=== PATIENT | female | born 1945 | race Caucasian/White ===

== ENCOUNTER 2017-11-07 14:29 | Observation (INO) | payer OTHER ==
[~2017-11-07] VITALS: Ht 175.3 cm; Wt 84.0 kg
[~2017-11-07 14:29] MED LIST: AMLO1TAB; ASPI-614 PO; ATEN50TA41 PO; CHOL100011 PO; CLON0.1T; INSU100V8; LISI-167 PO; LOVA-39; MELA10CA PO; MULT1CAP19 PO; OMEP10CA4 PO; OXYB10TA6; SERT50TA5; SULCRAFATE
[2017-11-07 14:54] LABS: BASOPHILS # (AUTO) 0.02 x10^3/uL (0-0.1); BASOPHILS % (AUTO) 1 % (0-1); EOSINOPHILS % (AUTO) 3 % (1-7); LYMPHOCYTES # (AUTO) 1.51 x10^3/uL (1-3.4); LYMPHOCYTES % (AUTO) 40 % (22-44); MD NO; MEAN CORPUSCULAR HEMOGLOBIN 32.6 pg (27.0-34.8); MEAN CORPUSCULAR HGB CONC 34.3 g/dL (32.4-35.8); MEAN PLATELET VOLUME 9.4 fL (7.4-10.4); MONOCYTES # (AUTO) 0.37 x10^3/uL (0.2-0.8); MONOCYTES % (AUTO) 10 % (2-9); NEUTROPHILS # (AUTO) 1.77 x10^3/uL (1.8-6.8); NEUTROPHILS % (AUTO) 47 % (42-75); PLATELET COUNT 164 x10^3/uL (130-400); RED BLOOD COUNT 3.32 x10^6/uL (3.82-5.3); RED CELL DISTRIBUTION WIDTH 13.9 % (9.6-15.2)
[2017-11-07] MEDS ORDERED: ASPIRIN 81 MG TABLET CHEW ONE (14:57)
[2017-11-07] MEDS ORDERED: PLEASE ENTER HEIGHT AND WEIGHT MC SCH (15:00)
[2017-11-07] MEDS ORDERED: ASPIRIN 81 MG TABLET CHEW PO ONE (15:00)
[2017-11-07 15:07] LABS: ALANINE AMINOTRANSFERASE 23 U/L (12-78); ALBUMIN 3.4 g/dL (3.4-5.0); ANION GAP 10 mmol/L (5-15); CALCIUM 9.2 mg/dL (8.5-10.1); CHLORIDE 109 mmol/L (98-107); CREATININE 1.31 mg/dL (0.55-1.02)
[2017-11-07 15:11] LABS: ALKALINE PHOSPHATASE 95 U/L (45-117); BILIRUBIN,TOTAL 0.6 mg/dL (0.2-1.0); TROPONIN I < 0.015 ng/mL (0.000-0.045)
[2017-11-07] MEDS ORDERED: FUROSEMIDE 20 MG/2 ML IV ONE (15:30)
[2017-11-07] MEDS ORDERED: ATOR40TA78 PO (15:46)
[2017-11-07] MEDS ORDERED: MIRA50TA PO (15:46)
[2017-11-07] MEDS ORDERED: LIOT5TAB3 PO (15:46)
[2017-11-07] MEDS ORDERED: AMLO5TAB7 PO (15:46)
[2017-11-07] MEDS ORDERED: ALEN70TA5 PO (15:46)
[2017-11-07] MEDS ORDERED: INSU300I INJ (15:46)
[2017-11-07] MEDS ORDERED: CEPH-375 PO (15:46)
[2017-11-07] MEDS ORDERED: PIOG45TA4 PO (15:46)
[2017-11-07] MEDS ORDERED: FUROSEMIDE 20 MG/2 ML ONE (16:05)
[2017-11-07 16:51] VITALS: BP 161/73
[2017-11-07] MEDS ORDERED: morphine SULFATE 10 MG/ML, 1ML IVPush PRN (17:00)
[2017-11-07] MEDS ORDERED: NITROGLYCERIN 0.4 MG BOTTLE (25 TABS) SL PRN (17:00)
[2017-11-07 19:47] LABS: TROPONIN I < 0.015 ng/mL (0.000-0.045)
[2017-11-07 20:07] LABS: MICROSCOPIC AUTO
[2017-11-07 20:09] LABS: CULTURE INDICATED? YES
[2017-11-07] MEDS: INSULIN LISPRO 100 UNITS/ML, PEN SQ-INSULIN SCH (21:00)
[2017-11-07] MEDS ORDERED: ATORVASTATIN 40 MG TABLET PO SCH (21:00)
[2017-11-07 21:02] VITALS: BP 156/70
[2017-11-07] MEDS ORDERED: CEFTRIAXONE PMX 1GM/50ML 50 ML IV SCH (21:30)
[2017-11-07] MEDS: LIOTHYRONINE 5 MCG TABLET PO SCH (21:33)
[2017-11-07 23:37] LABS: TROPONIN I < 0.015 ng/mL (0.000-0.045)
[2017-11-08 02:29] VITALS: BP 153/67
[2017-11-08 05:14] LABS: BASOPHILS # (AUTO) 0.02 x10^3/uL (0-0.1); BASOPHILS % (AUTO) 1 % (0-1); EOSINOPHILS # (AUTO) 0.08 x10^3/uL (0-0.4); EOSINOPHILS % (AUTO) 2 % (1-7); LYMPHOCYTES # (AUTO) 1.59 x10^3/uL (1-3.4); LYMPHOCYTES % (AUTO) 43 % (22-44); MD NO; MEAN CORPUSCULAR HEMOGLOBIN 33.1 pg (27.0-34.8); MEAN CORPUSCULAR HGB CONC 34.7 g/dL (32.4-35.8); MEAN CORPUSCULAR VOLUME 95.4 fL (80-100); MEAN PLATELET VOLUME 9.5 fL (7.4-10.4); MONOCYTES # (AUTO) 0.44 x10^3/uL (0.2-0.8); MONOCYTES % (AUTO) 12 % (2-9); NEUTROPHILS # (AUTO) 1.53 x10^3/uL (1.8-6.8); NEUTROPHILS % (AUTO) 42 % (42-75); PLATELET COUNT 144 x10^3/uL (130-400); RED BLOOD COUNT 3.05 x10^6/uL (3.82-5.3)
[2017-11-08 05:25] LABS: ANION GAP 10 mmol/L (5-15); CALCIUM 8.9 mg/dL (8.5-10.1); CHLORIDE 107 mmol/L (98-107)
[2017-11-08 05:27] LABS: CREATININE 1.27 mg/dL (0.55-1.02)
[2017-11-08] MEDS ORDERED: ASPIRIN 325 MG TABLET EC PO SCH (06:00)
[2017-11-08 06:48] VITALS: BP 146/70
[2017-11-08] MEDS ORDERED: OMEPRAZOLE 20 MG CAPSULE.DR PO SCH (07:30)
[2017-11-08] MEDS: INSULIN LISPRO 100 UNITS/ML, PEN SQ-INSULIN SCH ×3 (07:42→16:19)
[2017-11-08] MEDS ORDERED: REGADENOSON 0.4 MG/5 ML SYRINGE ONE (08:34)
[2017-11-08] MEDS ORDERED: AMLODIPINE 5 MG TABLET PO SCH (09:00)
[2017-11-08] MEDS ORDERED: ATENOLOL 100 MG TABLET PO SCH (09:00)
[2017-11-08] MEDS ORDERED: LISINOPRIL 20 MG TABLET PO SCH (09:00)
[2017-11-08] MEDS ORDERED: CHOLECALCIFEROL 5,000u TAB PO SCH (09:00)
[2017-11-08] MEDS ORDERED: CEPHALEXIN 250 MG CAPSULE PO SCH (09:00)
[2017-11-08] MEDS: LIOTHYRONINE 5 MCG TABLET PO SCH (09:36)
[2017-11-08] MEDS ORDERED: MAALOX/HYOSCYAMINE/LIDOCAINE 45 ML BTL PO ONE (13:00)
[2017-11-08 14:04] VITALS: BP 129/61
[2017-11-08] MEDS ORDERED: POTA20TA37 PO (17:12)
[2017-11-08] MEDS ORDERED: CIPR500T87 PO (17:12)
[2017-11-08] MEDS ORDERED: FURO-93 PO (17:12)
[2017-11-08] MEDS ORDERED: CARV6.2512 PO (17:27)
== END 2017-11-08 19:35 | disposition home or self-care (01) ==
LOC: ED 15:22 → INTOOBSV 15:23 → EDIP 15:23 → ED 15:26 → 5SO 16:40
PROVIDERS: ADMIT Internal Medicine; ATTEND Hospitalist
DX: R07.89 Other chest pain (principal); I13.0 Hypertensive heart and chronic kidney disease with heart failure and stage 1 through stage 4 chronic kidney disease, or unspecified chronic kidney disease; E11.22 Type 2 diabetes mellitus with diabetic chronic kidney disease; I50.31 Acute diastolic (congestive) heart failure; N18.2 Chronic kidney disease, stage 2 (mild); E78.5 Hyperlipidemia, unspecified; D64.9 Anemia, unspecified; M81.0 Age-related osteoporosis without current pathological fracture; Z79.4 Long term (current) use of insulin; Z90.710 Acquired absence of both cervix and uterus
CPT/HCPCS: 36415; 71045; 78452; 80048; 80053; 81001; 82962; 83690; 83735; 83880; 84100; 84443; 84484; 85025; 85379; 87077; 87086; 87186; 90656; 93005; 93017; 96365; 96375; 97162; 97166; 99285; A9502; C8929; G0378; J0696; J1940; J2785; Q9957; 96374; J1815

== ENCOUNTER 2019-05-30 03:02 | Inpatient (IN) | payer MEDICARE, OTHER ==
[~2019-05-30] VITALS: Ht 172.7 cm; Wt 71.1 kg
[~2019-05-30 03:02] MED LIST changes: +ALEN70TA6 PO; +AMLO-150 PO; +ATOR40TA78 PO; +CARV6.2512 PO; +CEPH-375 PO; +CIPR500T87 PO; -CLON0.1T; +CLON0.1T22; +FURO-93 PO; +INSU300I INJ; +LIOT5TAB11 PO; +MIRA50TA PO; -OMEP10CA4 PO; +OMEP10CA5 PO; +PIOG45TA63 PO; +POTA20TA37 PO; +SERT50TA28; -SERT50TA5
[2019-05-30] MEDS ORDERED: ALEN5TAB5 PO (03:30)
--- NOTE | 2019-05-30 03:30 | NUR ---
pt resting on gurney, assisted into gown, monitors applied, siderails up x2, call light within reach
--- NOTE | 2019-05-30 03:53 | NUR ---
straight cath completed, urine sample taken to lab
[2019-05-30 04:00] LABS: BASOPHILS # (AUTO) 0.01 x10^3/uL (0-0.1); BASOPHILS % (AUTO) 0 % (0-1); EOSINOPHILS # (AUTO) 0.04 x10^3/uL (0-0.4); EOSINOPHILS % (AUTO) 1 % (1-7); LYMPHOCYTES # (AUTO) 0.59 x10^3/uL (1-3.4); LYMPHOCYTES % (AUTO) 15 % (22-44); MD NO; MEAN CORPUSCULAR HEMOGLOBIN 32.1 pg (27.0-34.8); MEAN CORPUSCULAR HGB CONC 33.1 g/dL (32.4-35.8); MEAN CORPUSCULAR VOLUME 96.9 fL (80-100); MEAN PLATELET VOLUME 10.1 fL (7.4-10.4); MONOCYTES # (AUTO) 0.35 x10^3/uL (0.2-0.8); MONOCYTES % (AUTO) 9 % (2-9); NEUTROPHILS # (AUTO) 2.85 x10^3/uL (1.8-6.8); NEUTROPHILS % (AUTO) 74 % (42-75); PLATELET COUNT 113 x10^3/uL (130-400); RED BLOOD COUNT 3.39 x10^6/uL (3.82-5.3); RED CELL DISTRIBUTION WIDTH 15.8 % (9.6-15.2)
[2019-05-30 04:04] LABS: MICROSCOPIC INDICATED
[2019-05-30 04:13] LABS: ALBUMIN 3.1 g/dL (3.4-5.0); ANION GAP 8 mmol/L (5-15); CALCIUM 9.4 mg/dL (8.5-10.1); CHLORIDE 105 mmol/L (98-107)
[2019-05-30 04:17] LABS: CULTURE INDICATED? NO
--- NOTE | 2019-05-30 04:17 | NUR ---
pt to ct
[2019-05-30 04:18] LABS: ALANINE AMINOTRANSFERASE 28 U/L (12-78); ALKALINE PHOSPHATASE 93 U/L (45-117); CREATININE 1.23 mg/dL (0.55-1.02); TOTAL PROTEIN 6.1 g/dL (6.4-8.2); TROPONIN I 0.019 ng/mL (0.000-0.045)
--- NOTE | 2019-05-30 04:37 | NUR ---
assisted pt onto bedpan
[2019-05-30] MEDS ORDERED: FUROSEMIDE 40 MG/4 ML ONE (04:46)
--- NOTE | 2019-05-30 04:53 | NUR ---
PT MEDICATED PER MAR
[2019-05-30] MEDS ORDERED: FUROSEMIDE 40 MG/4 ML IV ONE (05:00)
[2019-05-30 06:13] VITALS: BP 164/98
[2019-05-30 08:44] VITALS: BP 147/72
[2019-05-30] MEDS ORDERED: ALENDRONATE 70 MG TABLET PO SCH (09:00)
[2019-05-30] MEDS ORDERED: CEFTRIAXONE PMX 1GM/50ML 50 ML IV SCH (09:00)
[2019-05-30 09:10] LABS: % IRON SATURATION 16 % (20-55); IRON LEVEL 44 mcg/dL (50-170); TOTAL IRON BINDING CAPACITY 267 mcg/dL (250-450)
[2019-05-30 09:13] LABS: TROPONIN I < 0.015 ng/mL (0.000-0.045)
[2019-05-30] MEDS ORDERED: PHARMACY MAY ADJ FOR RENAL FX MC PRN (09:30)
[2019-05-30] MEDS: CARVEDILOL 6.25 MG TABLET PO SCH ×2 (10:31→20:46)
[2019-05-30] MEDS: ASPIRIN 81 MG TABLET CHEW PO SCH (10:31)
[2019-05-30] MEDS: FUROSEMIDE 20 MG/2 ML IV SCH (10:32)
[2019-05-30] MEDS: HEPARIN 5,000 UNITS/ML, 1ML SQ SCH ×2 (10:32→23:05)
[2019-05-30] MEDS: LISINOPRIL 20 MG TABLET PO SCH (10:32)
[2019-05-30] MEDS: PIPERACILLIN/TAZO/PMX 3.375GM 50 ML IV SCH ×3 (10:49→22:08)
[2019-05-30] MEDS: INSULIN LISPRO 100 UNITS/ML, PEN SQ-INSULIN SCH ×3 (11:00→21:03)
[2019-05-30] MEDS: DOXYCYCLINE 100 MG in DEXTROSE 5% 250 ML IV SCH (12:13)
[2019-05-30 14:59] LABS: TROPONIN I 0.025 ng/mL (0.000-0.045)
[2019-05-30 16:03] VITALS: BP 131/72
[2019-05-30 19:51] VITALS: BP 145/75
[2019-05-30] MEDS: ATORVASTATIN 40 MG TABLET PO SCH (20:46)
[2019-05-31] MEDS: DOXYCYCLINE 100 MG in DEXTROSE 5% 250 ML IV SCH ×2 (00:25→12:47)
[2019-05-31 01:45] VITALS: BP 132/70
[2019-05-31] MEDS: PIPERACILLIN/TAZO/PMX 3.375GM 50 ML IV SCH ×4 (03:57→23:41)
[2019-05-31 05:04] LABS: BASOPHILS # (AUTO) 0.02 x10^3/uL (0-0.1); BASOPHILS % (AUTO) 1 % (0-1); EOSINOPHILS # (AUTO) 0.06 x10^3/uL (0-0.4); EOSINOPHILS % (AUTO) 2 % (1-7); LYMPHOCYTES # (AUTO) 0.56 x10^3/uL (1-3.4); LYMPHOCYTES % (AUTO) 14 % (22-44); MD NO; MEAN CORPUSCULAR HEMOGLOBIN 32.9 pg (27.0-34.8); MEAN CORPUSCULAR HGB CONC 33.8 g/dL (32.4-35.8); MEAN CORPUSCULAR VOLUME 97.3 fL (80-100); MEAN PLATELET VOLUME 10.2 fL (7.4-10.4); MONOCYTES # (AUTO) 0.46 x10^3/uL (0.2-0.8); MONOCYTES % (AUTO) 12 % (2-9); NEUTROPHILS # (AUTO) 2.84 x10^3/uL (1.8-6.8); NEUTROPHILS % (AUTO) 72 % (42-75); PLATELET COUNT 102 x10^3/uL (130-400); RED BLOOD COUNT 2.98 x10^6/uL (3.82-5.3); RED CELL DISTRIBUTION WIDTH 15.6 % (9.6-15.2)
[2019-05-31 05:05] LABS: ALBUMIN 2.7 g/dL (3.4-5.0); ANION GAP 5 mmol/L (5-15); CALCIUM 8.6 mg/dL (8.5-10.1); CHLORIDE 102 mmol/L (98-107)
[2019-05-31 05:18] LABS: ALANINE AMINOTRANSFERASE 22 U/L (12-78); ALKALINE PHOSPHATASE 72 U/L (45-117); BILIRUBIN,TOTAL 1.2 mg/dL (0.2-1.0); CREATININE 1.15 mg/dL (0.55-1.02); TOTAL PROTEIN 5.5 g/dL (6.4-8.2)
[2019-05-31] MEDS: INSULIN LISPRO 100 UNITS/ML, PEN SQ-INSULIN SCH ×4 (07:00→21:42)
[2019-05-31 07:06] VITALS: BP 131/69
[2019-05-31] MEDS: FUROSEMIDE 20 MG/2 ML IV SCH (08:08)
[2019-05-31] MEDS: LISINOPRIL 20 MG TABLET PO SCH (08:09)
[2019-05-31] MEDS: ASPIRIN 81 MG TABLET CHEW PO SCH (08:09)
[2019-05-31] MEDS: CARVEDILOL 6.25 MG TABLET PO SCH ×2 (08:09→21:42)
[2019-05-31] MEDS: HEPARIN 5,000 UNITS/ML, 1ML SQ SCH ×2 (10:50→22:23)
[2019-05-31 12:40] VITALS: BP 138/75
[2019-05-31 19:46] VITALS: BP 131/73
[2019-05-31 20:39] LABS: ANION GAP 6 mmol/L (5-15); CALCIUM 8.5 mg/dL (8.5-10.1); CHLORIDE 102 mmol/L (98-107); CREATININE 1.14 mg/dL (0.55-1.02)
[2019-05-31] MEDS ORDERED: POTASSIUM CHLORIDE 20 MEQ in SODIUM CHLORIDE 0.9% 250 ML IV ONE (21:00)
[2019-05-31] MEDS ORDERED: POTASSIUM CHLORIDE 20 MEQ TAB.ER.PRT PO ONE (21:00)
[2019-05-31] MEDS ORDERED: MAGNESIUM SULFATE/D5W 100 ML IV ONE (21:00)
[2019-05-31] MEDS: ATORVASTATIN 40 MG TABLET PO SCH (21:42)
[2019-06-01] VITALS (7 sets, daily range): BP systolic 102–131; BP diastolic 61–78
[2019-06-01] MEDS: DOXYCYCLINE 100 MG in DEXTROSE 5% 250 ML IV SCH ×2 (00:24→12:02)
[2019-06-01] MEDS ORDERED: NITROGLYCERIN 0.4 MG/SPRAY SL PRN (00:30)
[2019-06-01] MEDS: NITROGLYCERIN 0.4 MG BOTTLE (25 TABS) SL PRN ×3 (00:36→00:51)
[2019-06-01] MEDS ORDERED: MORPHINE SULFATE 4 MG/ML, 1ML ONE (01:04)
[2019-06-01] MEDS ORDERED: MORPHINE SULFATE 4 MG/ML, 1ML IVPush ONE (01:30)
[2019-06-01] MEDS: PIPERACILLIN/TAZO/PMX 3.375GM 50 ML IV SCH ×4 (05:16→23:49)
[2019-06-01 05:48] LABS: BASOPHILS # (AUTO) 0.02 x10^3/uL (0-0.1); BASOPHILS % (AUTO) 0 % (0-1); EOSINOPHILS # (AUTO) 0.06 x10^3/uL (0-0.4); EOSINOPHILS % (AUTO) 2 % (1-7); LYMPHOCYTES # (AUTO) 0.67 x10^3/uL (1-3.4); LYMPHOCYTES % (AUTO) 16 % (22-44); MD NO; MEAN CORPUSCULAR HEMOGLOBIN 32.8 pg (27.0-34.8); MEAN CORPUSCULAR VOLUME 96.6 fL (80-100); MEAN PLATELET VOLUME 10.3 fL (7.4-10.4); MONOCYTES # (AUTO) 0.53 x10^3/uL (0.2-0.8); MONOCYTES % (AUTO) 13 % (2-9); NEUTROPHILS # (AUTO) 2.89 x10^3/uL (1.8-6.8); NEUTROPHILS % (AUTO) 69 % (42-75); PLATELET COUNT 100 x10^3/uL (130-400); RED BLOOD COUNT 2.86 x10^6/uL (3.82-5.3); RED CELL DISTRIBUTION WIDTH 15.6 % (9.6-15.2)
[2019-06-01 05:57] LABS: ANION GAP 6 mmol/L (5-15); CALCIUM 8.5 mg/dL (8.5-10.1); CHLORIDE 104 mmol/L (98-107)
[2019-06-01] MEDS: INSULIN LISPRO 100 UNITS/ML, PEN SQ-INSULIN SCH ×4 (07:00→21:00)
[2019-06-01] MEDS ORDERED: REGADENOSON 0.4 MG/5 ML SYRINGE ONE (09:18)
[2019-06-01] MEDS: ASPIRIN 81 MG TABLET CHEW PO SCH (12:01)
[2019-06-01] MEDS: LISINOPRIL 20 MG TABLET PO SCH (12:01)
[2019-06-01] MEDS: CARVEDILOL 6.25 MG TABLET PO SCH ×2 (12:02→21:49)
[2019-06-01] MEDS: FUROSEMIDE 20 MG/2 ML IV SCH (12:02)
[2019-06-01] MEDS: HEPARIN 5,000 UNITS/ML, 1ML SQ SCH ×2 (12:02→23:49)
[2019-06-01] MEDS ORDERED: POLYETHYLENE GLYCOL 17 GM PACKET PO PRN (14:00)
[2019-06-01] MEDS ORDERED: POTASSIUM CHLORIDE 20 MEQ PACKET PO ONE (14:00)
[2019-06-01] MEDS: ATORVASTATIN 40 MG TABLET PO SCH (21:49)
[2019-06-01] MEDS: DOCUSATE 100 MG CAPSULE PO PRN (22:00)
[2019-06-01] MEDS: SIMETHICONE 80 MG CHEW TAB PO PRN (22:00)
[2019-06-02] MEDS: DOXYCYCLINE 100 MG in DEXTROSE 5% 250 ML IV SCH ×2 (00:38→11:56)
[2019-06-02 02:30] VITALS: BP 128/70
[2019-06-02] MEDS: PIPERACILLIN/TAZO/PMX 3.375GM 50 ML IV SCH ×4 (05:16→22:33)
[2019-06-02 06:02] LABS: BASOPHILS # (AUTO) 0.02 x10^3/uL (0-0.1); BASOPHILS % (AUTO) 1 % (0-1); EOSINOPHILS # (AUTO) 0.07 x10^3/uL (0-0.4); EOSINOPHILS % (AUTO) 2 % (1-7); LYMPHOCYTES # (AUTO) 0.58 x10^3/uL (1-3.4); LYMPHOCYTES % (AUTO) 15 % (22-44); MD NO; MEAN CORPUSCULAR HEMOGLOBIN 32.7 pg (27.0-34.8); MEAN CORPUSCULAR VOLUME 96.1 fL (80-100); MEAN PLATELET VOLUME 9.7 fL (7.4-10.4); MONOCYTES # (AUTO) 0.43 x10^3/uL (0.2-0.8); MONOCYTES % (AUTO) 11 % (2-9); NEUTROPHILS # (AUTO) 2.74 x10^3/uL (1.8-6.8); NEUTROPHILS % (AUTO) 71 % (42-75); PLATELET COUNT 105 x10^3/uL (130-400); RED BLOOD COUNT 2.96 x10^6/uL (3.82-5.3); RED CELL DISTRIBUTION WIDTH 15.1 % (9.6-15.2)
[2019-06-02 06:05] LABS: ANION GAP 7 mmol/L (5-15); CALCIUM 8.7 mg/dL (8.5-10.1); CHLORIDE 102 mmol/L (98-107)
[2019-06-02 06:08] LABS: CREATININE 1.04 mg/dL (0.55-1.02)
[2019-06-02 06:35] VITALS: BP 134/77
[2019-06-02] MEDS: INSULIN LISPRO 100 UNITS/ML, PEN SQ-INSULIN SCH ×4 (07:00→22:10)
[2019-06-02] MEDS: ACETAMINOPHEN 325 MG TABLET PO PRN (08:54)
[2019-06-02] MEDS: ASPIRIN 81 MG TABLET CHEW PO SCH (08:54)
[2019-06-02] MEDS: LISINOPRIL 20 MG TABLET PO SCH (08:54)
[2019-06-02] MEDS: CARVEDILOL 6.25 MG TABLET PO SCH ×2 (08:54→22:02)
[2019-06-02] MEDS: FUROSEMIDE 20 MG/2 ML IV SCH (08:54)
[2019-06-02] MEDS: HEPARIN 5,000 UNITS/ML, 1ML SQ SCH ×2 (08:55→22:01)
[2019-06-02] MEDS: SIMETHICONE 80 MG CHEW TAB PO PRN (08:56)
[2019-06-02 12:48] VITALS: BP 131/73
[2019-06-02 19:31] VITALS: BP 127/65
[2019-06-02] MEDS: ATORVASTATIN 40 MG TABLET PO SCH (22:02)
[2019-06-02] MEDS: DOCUSATE 100 MG CAPSULE PO PRN (22:02)
[2019-06-02 22:27] VITALS: BP 122/48
[2019-06-02] MEDS ORDERED: POTASSIUM CHLORIDE 20 MEQ TAB.ER.PRT PO ONE (23:00)
[2019-06-03] MEDS: DOXYCYCLINE 100 MG in DEXTROSE 5% 250 ML IV SCH ×2 (00:16→13:41)
[2019-06-03 00:27] VITALS: BP 114/70
[2019-06-03] MEDS: PIPERACILLIN/TAZO/PMX 3.375GM 50 ML IV SCH ×3 (05:39→21:09)
[2019-06-03 05:56] LABS: BASOPHILS # (AUTO) 0.02 x10^3/uL (0-0.1); BASOPHILS % (AUTO) 1 % (0-1); EOSINOPHILS # (AUTO) 0.08 x10^3/uL (0-0.4); EOSINOPHILS % (AUTO) 2 % (1-7); LYMPHOCYTES # (AUTO) 0.62 x10^3/uL (1-3.4); LYMPHOCYTES % (AUTO) 17 % (22-44); MD NO; MEAN CORPUSCULAR HEMOGLOBIN 32.7 pg (27.0-34.8); MEAN CORPUSCULAR VOLUME 96.2 fL (80-100); MEAN PLATELET VOLUME 10.6 fL (7.4-10.4); MONOCYTES # (AUTO) 0.45 x10^3/uL (0.2-0.8); MONOCYTES % (AUTO) 12 % (2-9); NEUTROPHILS # (AUTO) 2.48 x10^3/uL (1.8-6.8); NEUTROPHILS % (AUTO) 68 % (42-75); PLATELET COUNT 114 x10^3/uL (130-400); RED BLOOD COUNT 3.02 x10^6/uL (3.82-5.3); RED CELL DISTRIBUTION WIDTH 15.3 % (9.6-15.2)
[2019-06-03 06:01] LABS: ANION GAP 4 mmol/L (5-15); CALCIUM 8.9 mg/dL (8.5-10.1); CHLORIDE 101 mmol/L (98-107); CREATININE 1.03 mg/dL (0.55-1.02)
[2019-06-03] MEDS ORDERED: ALENDRONATE 70 MG TABLET PO SCH (06:30)
[2019-06-03 06:56] VITALS: BP 132/74
[2019-06-03] MEDS: INSULIN LISPRO 100 UNITS/ML, PEN SQ-INSULIN SCH ×4 (06:56→21:00)
[2019-06-03] MEDS: LISINOPRIL 20 MG TABLET PO SCH (09:39)
[2019-06-03] MEDS: CARVEDILOL 6.25 MG TABLET PO SCH ×2 (09:39→21:09)
[2019-06-03] MEDS: FUROSEMIDE 20 MG/2 ML IV SCH (09:39)
[2019-06-03] MEDS: ASPIRIN 81 MG TABLET CHEW PO SCH (09:39)
[2019-06-03] MEDS: HEPARIN 5,000 UNITS/ML, 1ML SQ SCH (09:47)
[2019-06-03] MEDS ORDERED: POTASSIUM CHLORIDE 40 MEQ in SODIUM CHLORIDE 0.9% 500 ML IV ONE (12:00)
[2019-06-03 16:05] VITALS: BP 136/77
[2019-06-03 21:02] VITALS: BP 147/80
[2019-06-03] MEDS: ATORVASTATIN 40 MG TABLET PO SCH (21:09)
[2019-06-04] MEDS: DOXYCYCLINE 100 MG in DEXTROSE 5% 250 ML IV SCH ×2 (00:15→11:41)
[2019-06-04 00:18] VITALS: BP 130/70
[2019-06-04] MEDS: HEPARIN 5,000 UNITS/ML, 1ML SQ SCH ×3 (00:18→22:42)
[2019-06-04] MEDS: PIPERACILLIN/TAZO/PMX 3.375GM 50 ML IV SCH ×5 (03:48→23:50)
[2019-06-04 07:27] VITALS: BP 146/78
[2019-06-04] MEDS: LISINOPRIL 20 MG TABLET PO SCH (09:27)
[2019-06-04] MEDS: ASPIRIN 81 MG TABLET CHEW PO SCH (09:27)
[2019-06-04] MEDS: CARVEDILOL 6.25 MG TABLET PO SCH ×2 (09:28→22:41)
[2019-06-04] MEDS: FUROSEMIDE 20 MG/2 ML IV SCH (09:28)
[2019-06-04] MEDS: INSULIN LISPRO 100 UNITS/ML, PEN SQ-INSULIN SCH ×2 (09:54→22:42)
[2019-06-04 13:19] VITALS: BP 119/69
[2019-06-04] MEDS ORDERED: MAGNESIUM SULFATE/D5W 100 ML IV ONE (16:30)
[2019-06-04] MEDS ORDERED: SODIUM PHOSPHATE 15 MMOL in SODIUM CHLORIDE 0.9% 500 ML IV ONE (17:00)
[2019-06-04 20:16] VITALS: BP 130/70
[2019-06-04] MEDS: ATORVASTATIN 40 MG TABLET PO SCH (22:41)
[2019-06-05 01:04] VITALS: BP 116/64
[2019-06-05] MEDS: DOXYCYCLINE 100 MG in DEXTROSE 5% 250 ML IV SCH ×3 (01:10→23:32)
[2019-06-05 01:47] LABS: OCCULT BLOOD NEGATIVE (NEGATIVE)
[2019-06-05] MEDS: PIPERACILLIN/TAZO/PMX 3.375GM 50 ML IV SCH ×4 (05:44→20:45)
[2019-06-05 06:17] LABS: BASOPHILS # (AUTO) 0.02 x10^3/uL (0-0.1); BASOPHILS % (AUTO) 1 % (0-1); EOSINOPHILS # (AUTO) 0.07 x10^3/uL (0-0.4); EOSINOPHILS % (AUTO) 2 % (1-7); LYMPHOCYTES # (AUTO) 0.79 x10^3/uL (1-3.4); LYMPHOCYTES % (AUTO) 23 % (22-44); MD NO; MEAN CORPUSCULAR HEMOGLOBIN 33.1 pg (27.0-34.8); MEAN CORPUSCULAR HGB CONC 34.2 g/dL (32.4-35.8); MEAN CORPUSCULAR VOLUME 96.7 fL (80-100); MEAN PLATELET VOLUME 10.1 fL (7.4-10.4); MONOCYTES # (AUTO) 0.39 x10^3/uL (0.2-0.8); MONOCYTES % (AUTO) 11 % (2-9); NEUTROPHILS # (AUTO) 2.18 x10^3/uL (1.8-6.8); NEUTROPHILS % (AUTO) 63 % (42-75); PLATELET COUNT 127 x10^3/uL (130-400); RED BLOOD COUNT 3.07 x10^6/uL (3.82-5.3); RED CELL DISTRIBUTION WIDTH 14.9 % (9.6-15.2)
[2019-06-05 06:18] LABS: ALBUMIN 2.2 g/dL (3.4-5.0); ANION GAP 8 mmol/L (5-15); CHLORIDE 102 mmol/L (98-107)
[2019-06-05 06:23] LABS: ALANINE AMINOTRANSFERASE 16 U/L (12-78); ALKALINE PHOSPHATASE 64 U/L (45-117); BILIRUBIN,TOTAL 0.8 mg/dL (0.2-1.0); CREATININE 1.02 mg/dL (0.55-1.02); TOTAL PROTEIN 5.3 g/dL (6.4-8.2)
[2019-06-05 06:43] VITALS: BP 145/67
[2019-06-05] MEDS: ASPIRIN 81 MG TABLET CHEW PO SCH (08:53)
[2019-06-05] MEDS: LISINOPRIL 20 MG TABLET PO SCH (08:53)
[2019-06-05] MEDS: CARVEDILOL 6.25 MG TABLET PO SCH ×2 (08:53→20:33)
[2019-06-05] MEDS: FUROSEMIDE 20 MG/2 ML IV SCH (08:54)
[2019-06-05] MEDS: INSULIN LISPRO 100 UNITS/ML, PEN SQ-INSULIN SCH ×2 (09:00→20:44)
[2019-06-05] MEDS: HEPARIN 5,000 UNITS/ML, 1ML SQ SCH ×2 (11:09→23:32)
[2019-06-05] MEDS: ACETAMINOPHEN 325 MG TABLET PO PRN (12:12)
[2019-06-05 13:39] VITALS: BP 121/71
[2019-06-05] MEDS ORDERED: POTASSIUM CHLORIDE 40 MEQ in SODIUM CHLORIDE 0.9% 500 ML IV ONE (14:30)
[2019-06-05 17:14] LABS: CLOSTRIDIUM DIFFICILE ANTIGEN NEGATIVE; CLOSTRIDIUM DIFFICILE TOXIN NEGATIVE (Negative)
[2019-06-05 20:23] VITALS: BP 132/81
[2019-06-05] MEDS: ATORVASTATIN 40 MG TABLET PO SCH (20:33)
[2019-06-06 00:17] VITALS: BP 129/80
[2019-06-06] MEDS: PIPERACILLIN/TAZO/PMX 3.375GM 50 ML IV SCH ×4 (03:07→21:16)
[2019-06-06 05:34] LABS: BASOPHILS # (AUTO) 0.03 x10^3/uL (0-0.1); BASOPHILS % (AUTO) 1 % (0-1); EOSINOPHILS # (AUTO) 0.11 x10^3/uL (0-0.4); EOSINOPHILS % (AUTO) 3 % (1-7); LYMPHOCYTES # (AUTO) 0.96 x10^3/uL (1-3.4); LYMPHOCYTES % (AUTO) 28 % (22-44); MD NO; MEAN CORPUSCULAR HEMOGLOBIN 32.1 pg (27.0-34.8); MEAN CORPUSCULAR HGB CONC 33.6 g/dL (32.4-35.8); MEAN CORPUSCULAR VOLUME 95.6 fL (80-100); MONOCYTES # (AUTO) 0.43 x10^3/uL (0.2-0.8); MONOCYTES % (AUTO) 12 % (2-9); NEUTROPHILS # (AUTO) 1.92 x10^3/uL (1.8-6.8); NEUTROPHILS % (AUTO) 56 % (42-75); PLATELET COUNT 149 x10^3/uL (130-400); RED BLOOD COUNT 3.14 x10^6/uL (3.82-5.3); RED CELL DISTRIBUTION WIDTH 15.5 % (9.6-15.2)
[2019-06-06 05:40] LABS: ALBUMIN 2.4 g/dL (3.4-5.0); ANION GAP 3 mmol/L (5-15); CALCIUM 9.2 mg/dL (8.5-10.1); CHLORIDE 105 mmol/L (98-107); CREATININE 1.01 mg/dL (0.55-1.02)
[2019-06-06 07:39] VITALS: BP 143/77
[2019-06-06] MEDS: INSULIN LISPRO 100 UNITS/ML, PEN SQ-INSULIN SCH ×2 (07:50→21:17)
[2019-06-06] MEDS: POTASSIUM CHLORIDE 20 MEQ TAB.ER.PRT PO SCH (09:06)
[2019-06-06] MEDS: CARVEDILOL 6.25 MG TABLET PO SCH ×2 (09:06→20:56)
[2019-06-06] MEDS: FUROSEMIDE 20 MG/2 ML IV SCH (09:07)
[2019-06-06] MEDS: ASPIRIN 81 MG TABLET CHEW PO SCH (09:07)
[2019-06-06] MEDS: HEPARIN 5,000 UNITS/ML, 1ML SQ SCH ×2 (09:07→20:56)
[2019-06-06] MEDS: LISINOPRIL 20 MG TABLET PO SCH (09:07)
[2019-06-06] MEDS: DOXYCYCLINE 100 MG in DEXTROSE 5% 250 ML IV SCH (12:05)
[2019-06-06 12:32] VITALS: BP 115/70
[2019-06-06 19:49] VITALS: BP 120/65
[2019-06-06 20:55] VITALS: BP 138/73
[2019-06-06] MEDS: ATORVASTATIN 40 MG TABLET PO SCH (20:56)
[2019-06-07] MEDS: DOXYCYCLINE 100 MG in DEXTROSE 5% 250 ML IV SCH ×2 (01:19→11:59)
[2019-06-07 01:35] VITALS: BP 129/62
[2019-06-07] MEDS: PIPERACILLIN/TAZO/PMX 3.375GM 50 ML IV SCH ×4 (02:56→21:28)
[2019-06-07] MEDS: FUROSEMIDE 20 MG/2 ML IV SCH (07:53)
[2019-06-07] MEDS: POTASSIUM CHLORIDE 20 MEQ TAB.ER.PRT PO SCH (07:53)
[2019-06-07] MEDS: LISINOPRIL 20 MG TABLET PO SCH (07:53)
[2019-06-07] MEDS: CARVEDILOL 6.25 MG TABLET PO SCH ×2 (07:53→21:28)
[2019-06-07] MEDS: ASPIRIN 81 MG TABLET CHEW PO SCH (07:53)
[2019-06-07] MEDS: INSULIN LISPRO 100 UNITS/ML, PEN SQ-INSULIN SCH ×2 (07:59→21:29)
[2019-06-07 08:12] VITALS: BP 146/74
[2019-06-07] MEDS: ACETAMINOPHEN 325 MG TABLET PO PRN (11:59)
[2019-06-07] MEDS: HEPARIN 5,000 UNITS/ML, 1ML SQ SCH ×2 (11:59→21:28)
[2019-06-07 14:02] VITALS: BP 126/62
[2019-06-07] MEDS: ATORVASTATIN 40 MG TABLET PO SCH (21:28)
[2019-06-07 21:29] VITALS: BP 121/69
[2019-06-08] MEDS: DOXYCYCLINE 100 MG in DEXTROSE 5% 250 ML IV SCH (00:15)
[2019-06-08] MEDS: PIPERACILLIN/TAZO/PMX 3.375GM 50 ML IV SCH (03:19)
[2019-06-08 03:24] VITALS: BP 120/76
[2019-06-08 04:59] LABS: BASOPHILS # (AUTO) 0.03 x10^3/uL (0-0.1); BASOPHILS % (AUTO) 1 % (0-1); EOSINOPHILS # (AUTO) 0.11 x10^3/uL (0-0.4); EOSINOPHILS % (AUTO) 3 % (1-7); LYMPHOCYTES # (AUTO) 1.31 x10^3/uL (1-3.4); LYMPHOCYTES % (AUTO) 36 % (22-44); MD NO; MEAN CORPUSCULAR HEMOGLOBIN 32.6 pg (27.0-34.8); MEAN CORPUSCULAR HGB CONC 34.2 g/dL (32.4-35.8); MEAN CORPUSCULAR VOLUME 95.2 fL (80-100); MEAN PLATELET VOLUME 9.9 fL (7.4-10.4); MONOCYTES # (AUTO) 0.49 x10^3/uL (0.2-0.8); MONOCYTES % (AUTO) 13 % (2-9); NEUTROPHILS # (AUTO) 1.75 x10^3/uL (1.8-6.8); NEUTROPHILS % (AUTO) 47 % (42-75); PLATELET COUNT 172 x10^3/uL (130-400); RED BLOOD COUNT 2.96 x10^6/uL (3.82-5.3); RED CELL DISTRIBUTION WIDTH 14.7 % (9.6-15.2)
[2019-06-08 05:10] LABS: ANION GAP 6 mmol/L (5-15); CALCIUM 9.1 mg/dL (8.5-10.1); CHLORIDE 103 mmol/L (98-107); CREATININE 1.09 mg/dL (0.55-1.02)
[2019-06-08] MEDS: INSULIN LISPRO 100 UNITS/ML, PEN SQ-INSULIN SCH (07:26)
[2019-06-08 07:54] VITALS: BP 132/78
[2019-06-08] MEDS ORDERED: POTASSIUM CHLORIDE 20 MEQ TAB.ER.PRT PO SCH (08:00)
[2019-06-08] MEDS: ASPIRIN 81 MG TABLET CHEW PO SCH (09:34)
[2019-06-08] MEDS: LISINOPRIL 20 MG TABLET PO SCH (09:34)
[2019-06-08] MEDS: FUROSEMIDE 20 MG/2 ML IV SCH (09:34)
[2019-06-08] MEDS: CARVEDILOL 6.25 MG TABLET PO SCH (09:34)
[2019-06-08] MEDS ORDERED: ASPI-515 PO (10:19)
[2019-06-08] MEDS ORDERED: FURO-93 PO (10:19)
[2019-06-08] MEDS ORDERED: POTA20TA6 PO (10:19)
== END 2019-06-08 13:40 | DRG 177 ==
LOC: ED 05:08 → 5SO 05:48
PROVIDERS: ADMIT Family Medicine; ATTEND Family Medicine
DX: J69.0 Pneumonitis due to inhalation of food and vomit (principal); I50.23 Acute on chronic systolic (congestive) heart failure; I13.0 Hypertensive heart and chronic kidney disease with heart failure and stage 1 through stage 4 chronic kidney disease, or unspecified chronic kidney disease; Q21.1 Atrial septal defect; E78.00 Pure hypercholesterolemia, unspecified; D64.9 Anemia, unspecified; D69.6 Thrombocytopenia, unspecified; E87.6 Hypokalemia; N18.2 Chronic kidney disease, stage 2 (mild); M81.0 Age-related osteoporosis without current pathological fracture; R29.6 Repeated falls; K21.9 Gastro-esophageal reflux disease without esophagitis; E11.43 Type 2 diabetes mellitus with diabetic autonomic (poly)neuropathy; G89.29 Other chronic pain; K31.84 Gastroparesis; E11.22 Type 2 diabetes mellitus with diabetic chronic kidney disease; R62.50 Unspecified lack of expected normal physiological development in childhood; Z86.73 Personal history of transient ischemic attack (TIA), and cerebral infarction without residual deficits; Z90.710 Acquired absence of both cervix and uterus; Z91.81 History of falling; Z79.4 Long term (current) use of insulin; Z82.49 Family history of ischemic heart disease and other diseases of the circulatory system; Z79.899 Other long term (current) drug therapy; Z79.82 Long term (current) use of aspirin; Z20.828 Contact with and (suspected) exposure to other viral communicable diseases
CPT/HCPCS: 36415; 70450; 71045; 72125; 78452; 80048; 80053; 80307; 81001; 82040; 82272; 82962; 83036; 83540; 83550; 83735; 83880; 84100; 84443; 84484; 85025; 87324; 93005; 93017; 93306; 99285; G0378; J1644; J1940; J2543; J2785; J3480; J7060; A9502; J1815; J2270; J7040; J7050; U0001